=== PATIENT | female | born 1950 | race Caucasian/White ===

== ENCOUNTER 2024-01-31 21:38 | Emergency (ER) | payer OTHER ==
[~2024-01-31] VITALS: Ht 147.3 cm; Wt 43.0 kg
[2024-01-31 22:05] VITALS: O2SAT 100
[2024-01-31] MEDS: TETANUS, DIPHTHERIA, PERTUSSIS VAC/PF 0.5ML (>10YR OLD) IM ONE (23:56)
[2024-01-31] MEDS: ACETAMINOPHEN 500MG TABLET PO ONE (23:57)
[2024-02-01 00:13] VITALS: BP 149/64; PULSE 72; RESP 14; TEMP 36.83628; O2SAT 100
== END 2024-02-01 00:15 | disposition home or self-care (01) ==
LOC: ER 21:38
DX: S20.219A Contusion of unspecified front wall of thorax, initial encounter (principal); S50.01XA Contusion of right elbow, initial encounter; S60.211A Contusion of right wrist, initial encounter; S80.01XA Contusion of right knee, initial encounter; S80.02XA Contusion of left knee, initial encounter; S00.81XA Abrasion of other part of head, initial encounter; S00.31XA Abrasion of nose, initial encounter; I10 Essential (primary) hypertension; W22.09XA Striking against other stationary object, initial encounter; Y93.89 Activity, other specified; Y92.89 Other specified places as the place of occurrence of the external cause; Y99.8 Other external cause status
CPT/HCPCS: 71045; 73080; 73110; 73562; 90471; 90715; 99284